=== PATIENT | male | born 1940 | race Caucasian/White ===

== ENCOUNTER 2021-07-12 21:58 | Emergency (ER) | payer MEDICARE ==
[2021-07-12 23:19] LABS: HEMOGLOBIN 12.5 gm/dl (14.0-17.5); RED BLOOD COUNT 4.57 M/UL (4.20-5.50); WHITE BLOOD COUNT 7.5 K/UL (4.5-11.0)
[2021-07-12 23:36] LABS: BUN/CREATININE RATIO 22 (0-10)
[2021-07-13] MEDS ORDERED: CEPHALEXIN500 MG PO (02:42)
[2021-07-13] MEDS ORDERED: BACTRIM DS TAB1 EACH PO (02:42)
== END 2021-07-13 02:55 | disposition home or self-care (01) ==
LOC: ER1 21:58
DX: L03.116 Cellulitis of left lower limb (principal); L03.115 Cellulitis of right lower limb; R79.1 Abnormal coagulation profile; R60.0 Localized edema; I11.9 Hypertensive heart disease without heart failure; I48.91 Unspecified atrial fibrillation
CPT/HCPCS: 71045; 73502; 80053; 82550; 82553; 83605; 83880; 84484; 85025; 85379; 85610; 85652; 85730; 86140; 93005; 99284